=== PATIENT | female | born 1945 | race Caucasian/White ===

== ENCOUNTER 2017-07-02 09:39 | Emergency (ER) | payer OTHER, MEDICAID ==
[~2017-07-02] VITALS: Ht 157.5 cm; Wt 80.8 kg
[2017-07-02 09:40] VITALS: BP 131/82
[2017-07-02] MEDS ORDERED: POTA20TA89 PO (10:08)
[2017-07-02] MEDS ORDERED: SIMV80TA3 PO (10:10)
[2017-07-02] MEDS ORDERED: LISI-170 PO (10:10)
[2017-07-02] MEDS ORDERED: ASPI-496 PO (10:10)
[2017-07-02] MEDS ORDERED: FURO20TA3 PO (10:10)
[2017-07-02] MEDS ORDERED: RANI150T4 PO (10:10)
[2017-07-02] MEDS ORDERED: CARV12.52 PO (10:10)
[2017-07-02] MEDS ORDERED: HYDROcodone/APAP 5/325 TABLET ONE (10:19)
[2017-07-02] MEDS ORDERED: HYDROcodone/APAP 5/325 TABLET PO PRN (10:30)
== END 2017-07-02 12:08 | disposition home or self-care (01) ==
LOC: ED 10:40
DX: M51.36 Other intervertebral disc degeneration, lumbar region (principal); K45.8 Other specified abdominal hernia without obstruction or gangrene; J44.9 Chronic obstructive pulmonary disease, unspecified; I11.0 Hypertensive heart disease with heart failure; I50.9 Heart failure, unspecified
CPT/HCPCS: 72072; 72110; 99284

== ENCOUNTER → 2017-09-03 | Outpatient (CLI) | payer OTHER, MEDICAID ==
[~2017-09-03] MED LIST: ASPI-496 PO; CARV12.52 PO; FURO20TA3 PO; LISI-170 PO; POTA20TA89 PO; RANI150T4 PO; SIMV80TA3 PO
== END | disposition home or self-care (01) ==
LOC: CFH 09:19
PROVIDERS: ATTEND Family Medicine
DX: I08.3 Combined rheumatic disorders of mitral, aortic and tricuspid valves (principal); I11.0 Hypertensive heart disease with heart failure; I50.9 Heart failure, unspecified; E78.5 Hyperlipidemia, unspecified
CPT/HCPCS: 93306

== ENCOUNTER → 2017-12-09 | Outpatient (CLI) | payer OTHER, MEDICAID | END | disposition home or self-care (01) | LOC: CFH 12:12 | PROVIDERS: ATTEND Family Medicine | DX: I08.3 Combined rheumatic disorders of mitral, aortic and tricuspid valves (principal); I11.0 Hypertensive heart disease with heart failure; I50.9 Heart failure, unspecified; Z99.81 Dependence on supplemental oxygen | CPT/HCPCS: 93306 ==

== ENCOUNTER 2018-01-13 06:51 | Observation (INO) | payer OTHER, MEDICAID ==
[~2018-01-13] VITALS: Ht 157.5 cm; Wt 90.0 kg
[2018-01-13] MEDS: SODIUM CHLORIDE 0.9% 1,000 ML IV SCH ×2 (07:13→15:13)
[2018-01-13] MEDS ORDERED: CEFAZOLIN PMX 1GM/50ML 50 ML IVPB ONE (07:30)
[2018-01-13] MEDS ORDERED: ATOR40TA78 PO (07:31)
[2018-01-13] MEDS ORDERED: LISI5TAB7 PO (07:31)
[2018-01-13 07:52] VITALS: BP 142/89
[2018-01-13] MEDS ORDERED: MIDAZOLAM 1 MG/ML, 2ML ONE (08:04)
[2018-01-13] MEDS ORDERED: FENTANYL PF 250 MCG/5ML ONE (08:04)
[2018-01-13] MEDS ORDERED: ALBUTEROL SULFATE 200 PUFFS/8.5 GR INH ONE (08:16)
[2018-01-13] MEDS ORDERED: DEXAMETHASONE 4 MG/ML, 1ML ONE (08:16)
[2018-01-13] MEDS ORDERED: SUCCINYLCHOLINE 20 MG/ML, 10ML ONE (08:16)
[2018-01-13] MEDS ORDERED: EPHEDRINE 50 MG/ML, 1ML ONE (08:16)
[2018-01-13] MEDS ORDERED: PROPOFOL 10 MG/ML, 20ML ONE (08:16)
[2018-01-13] MEDS ORDERED: ONDANSETRON 2MG/ML, 2ML ONE (08:16)
[2018-01-13] MEDS ORDERED: BUPIVACAINE 0.25% ONE (08:28)
[2018-01-13] MEDS ORDERED: CEFAZOLIN 1,000 MG ONE (08:29)
[2018-01-13] MEDS ORDERED: HYDROcodone/APAP 5/325 TABLET PO PRN (09:30)
[2018-01-13] MEDS ORDERED: ZOLPIDEM 5MG TABLET PO PRN (09:30)
[2018-01-13] MEDS ORDERED: ALBUTEROL SULFATE 2.5 MG/3 ML NPPB PRN (10:00)
[2018-01-13] MEDS ORDERED: hydrALAzine 20 MG/ML, 1ML IV PRN (10:00)
[2018-01-13] MEDS ORDERED: morphine SULFATE 10 MG/ML, 1ML IV PRN (10:00)
[2018-01-13] MEDS ORDERED: MEPERIDINE/PF 25MG/0.5ML IVPush PRN (10:00)
[2018-01-13] MEDS ORDERED: MIDAZOLAM 1 MG/ML, 2ML IV PRN (10:00)
[2018-01-13] MEDS ORDERED: OXYcodone 5 MG/5 ML ORAL.SOL UDC PO PRN (10:00)
[2018-01-13] MEDS ORDERED: LABETALOL 5MG/ML, 20ML IV PRN (10:00)
[2018-01-13] MEDS ORDERED: ONDANSETRON 2MG/ML, 2ML IVPush PRN (10:00)
[2018-01-13] MEDS ORDERED: FENTANYL PF 100 MCG/2ML IV PRN (10:00)
[2018-01-13] MEDS ORDERED: PROMETHAZINE 12.5 MG SUPP PR PRN (10:00)
[2018-01-13] MEDS ORDERED: OXYcodone 5 MG/5 ML ORAL.SOL UDC ONE (10:02)
[2018-01-13 11:46] VITALS: BP 121/78
[2018-01-13 13:50] VITALS: BP 116/75
[2018-01-13] MEDS: CEFAZOLIN PMX 1GM/50ML 50 ML IVPB SCH (16:40)
[2018-01-13] MEDS ORDERED: ATORVASTATIN 40 MG TABLET PO SCH (21:00)
[2018-01-13 21:43] VITALS: BP_SYST 102; BP_SYST 99; BP_DIAS 58; BP_DIAS 66
[2018-01-13] MEDS: FAMOTIDINE 20 MG TABLET PO SCH (21:49)
[2018-01-13] MEDS: SODIUM CHLORIDE FLUSH 10ML SYR IVF SCH (21:49)
[2018-01-13] MEDS: CARVEDILOL 12.5 MG TABLET PO SCH (21:49)
[2018-01-14] MEDS: CEFAZOLIN PMX 1GM/50ML 50 ML IVPB SCH (01:03)
[2018-01-14 02:20] VITALS: BP 95/61
[2018-01-14 08:00] VITALS: BP 96/61
[2018-01-14] MEDS ORDERED: ASPIRIN 81 MG TABLET EC PO SCH (09:00)
[2018-01-14] MEDS ORDERED: FUROSEMIDE 20 MG TABLET PO SCH (09:00)
[2018-01-14] MEDS ORDERED: POTASSIUM CHLORIDE 10 MEQ TABLET.ER PO SCH (09:00)
[2018-01-14] MEDS ORDERED: LISINOPRIL 5 MG TABLET PO SCH (09:00)
[2018-01-14] MEDS: FAMOTIDINE 20 MG TABLET PO SCH (09:39)
[2018-01-14] MEDS: CARVEDILOL 12.5 MG TABLET PO SCH (09:40)
[2018-01-14 09:41] VITALS: BP 113/68
[2018-01-14] MEDS: SODIUM CHLORIDE FLUSH 10ML SYR IVF SCH (09:41)
== END 2018-01-14 12:28 | disposition home or self-care (01) ==
LOC: CACL 06:51 → ORIP 09:21 → 5SO 11:13 → DCLOUNGE 01-14 12:12
PROVIDERS: ADMIT Internal Medicine Cardiovascular Disease; ATTEND Internal Medicine Cardiovascular Disease
DX: I25.5 Ischemic cardiomyopathy (principal); I11.0 Hypertensive heart disease with heart failure; I50.1 Left ventricular failure, unspecified; R94.31 Abnormal electrocardiogram [ECG] [EKG]; E78.2 Mixed hyperlipidemia
CPT/HCPCS: 33249; 71045; 71046; 93005; 93641; 96365; 96366; C1721; C1779; C1892; C1895; G0378; J0330; J0690; J1100; J2250; J2405; J2704; J3010; J3490

== ENCOUNTER 2018-12-19 10:41 | Emergency (ER) | payer MEDICARE, MEDICAID ==
[~2018-12-19] VITALS: Ht 157.5 cm; Wt 90.5 kg
[~2018-12-19 10:41] MED LIST changes: +ATOR40TA78 PO; +LISI5TAB7 PO; +SIMV80TA18 PO; -SIMV80TA3 PO
--- NOTE | 2018-12-19 11:57 | NUR ---
PT TO ROOM 30 FROM [facility]. PT PRESENTS TO ED WITH C/O BILATERAL LEG SWELLING X 2 WEEKS, AND INCREASED SOB X 4 MONTHS. PT DENIES LEG/FOOT PAIN, DENIES CHEST PAIN/PRESSURE. PT A&O, RESPS EVEN AND UNLABORED. PT ABLE TO SPEAK IN FULL SENTENCES WITHOUT DIFFICULTY. EKG TAKEN IN TRIAGE. ALL MONITORS IN PLACE. ERP ARREDONDO AT BEDSIDE FOR INITIAL ASSESSMENT.
[2018-12-19] MEDS ORDERED: POTA10TA6 PO (12:08)
[2018-12-19] MEDS ORDERED: CARV25TA12 PO (12:08)
[2018-12-19] MEDS ORDERED: RANI150C PO (12:08)
[2018-12-19 12:24] LABS: BASOPHILS # (AUTO) 0.05 x10^3/uL (0-0.1); BASOPHILS % (AUTO) 1 % (0-1); EOSINOPHILS # (AUTO) 0.13 x10^3/uL (0-0.4); EOSINOPHILS % (AUTO) 2 % (1-7); LYMPHOCYTES # (AUTO) 1.88 x10^3/uL (1-3.4); LYMPHOCYTES % (AUTO) 30 % (22-44); MD NO; MEAN CORPUSCULAR HEMOGLOBIN 30.6 pg (27.0-34.8); MEAN CORPUSCULAR HGB CONC 33.1 g/dL (32.4-35.8); MEAN CORPUSCULAR VOLUME 92.4 fL (80-100); MEAN PLATELET VOLUME 10.1 fL (7.4-10.4); MONOCYTES # (AUTO) 0.44 x10^3/uL (0.2-0.8); MONOCYTES % (AUTO) 7 % (2-9); NEUTROPHILS # (AUTO) 3.86 x10^3/uL (1.8-6.8); NEUTROPHILS % (AUTO) 61 % (42-75); PLATELET COUNT 196 x10^3/uL (130-400); RED BLOOD COUNT 4.37 x10^6/uL (3.82-5.3); RED CELL DISTRIBUTION WIDTH 14.3 % (9.6-15.2)
[2018-12-19 12:35] LABS: ALANINE AMINOTRANSFERASE 30 U/L (12-78); ALBUMIN 3.6 g/dL (3.4-5.0); ANION GAP 2 mmol/L (5-15); CALCIUM 8.4 mg/dL (8.5-10.1); CHLORIDE 112 mmol/L (98-107)
[2018-12-19 12:40] LABS: ALKALINE PHOSPHATASE 89 U/L (45-117); BILIRUBIN,TOTAL 1.9 mg/dL (0.2-1.0); CREATININE 1.25 mg/dL (0.55-1.02); TOTAL PROTEIN 6.7 g/dL (6.4-8.2)
[2018-12-19 13:10] LABS: TROPONIN I < 0.015 ng/mL (0.000-0.045)
--- NOTE | 2018-12-19 13:19 | NUR ---
REPORT GIVEN TO JAMES MARINELLI AT BEDSIDE, US IN PROGRESS. PT A&O, RESPS EVEN AND UNLABORED, NO COMPLAINT AT THIS TIME.
[2018-12-19 13:25] VITALS: BP 113/89
[2018-12-19] MEDS ORDERED: FUROSEMIDE 20 MG TABLET ONE (13:58)
[2018-12-19] MEDS ORDERED: FUROSEMIDE 40 MG TABLET PO ONE (14:00)
== END 2018-12-19 14:58 | disposition home or self-care (01) ==
LOC: ED 12:38
DX: R60.0 Localized edema (principal); I11.0 Hypertensive heart disease with heart failure; I50.9 Heart failure, unspecified; J44.9 Chronic obstructive pulmonary disease, unspecified; Z95.0 Presence of cardiac pacemaker
CPT/HCPCS: 36415; 71046; 80053; 83880; 84484; 85025; 93005; 93970; 99284

== ENCOUNTER 2019-03-09 15:51 | Inpatient (IN) | payer MEDICARE, MEDICAID ==
[~2019-03-09] VITALS: Ht 157.5 cm; Wt 90.4 kg
[~2019-03-09 15:51] MED LIST changes: +CARV25TA12 PO; +POTA10TA6 PO; +RANI150C PO
[2019-03-09 16:54] LABS: BASOPHILS # (AUTO) 0.07 x10^3/uL (0-0.1); BASOPHILS % (AUTO) 1 % (0-1); EOSINOPHILS # (AUTO) 0.03 x10^3/uL (0-0.4); EOSINOPHILS % (AUTO) 0 % (1-7); LYMPHOCYTES # (AUTO) 1.46 x10^3/uL (1-3.4); LYMPHOCYTES % (AUTO) 14 % (22-44); MD NO; MEAN CORPUSCULAR HEMOGLOBIN 30.6 pg (27.0-34.8); MEAN CORPUSCULAR VOLUME 92.7 fL (80-100); MEAN PLATELET VOLUME 10.1 fL (7.4-10.4); MONOCYTES # (AUTO) 0.89 x10^3/uL (0.2-0.8); MONOCYTES % (AUTO) 9 % (2-9); NEUTROPHILS # (AUTO) 7.79 x10^3/uL (1.8-6.8); NEUTROPHILS % (AUTO) 76 % (42-75); PLATELET COUNT 144 x10^3/uL (130-400); RED BLOOD COUNT 4.15 x10^6/uL (3.82-5.3); RED CELL DISTRIBUTION WIDTH 13.9 % (9.6-15.2)
[2019-03-09 17:08] LABS: ALBUMIN 3.5 g/dL (3.4-5.0); ANION GAP 7 mmol/L (5-15); CALCIUM 8.4 mg/dL (8.5-10.1); CHLORIDE 106 mmol/L (98-107)
[2019-03-09 17:14] LABS: ALANINE AMINOTRANSFERASE 17 U/L (12-78); ALKALINE PHOSPHATASE 85 U/L (45-117); BILIRUBIN,TOTAL 3.4 mg/dL (0.2-1.0); TOTAL PROTEIN 6.9 g/dL (6.4-8.2); TROPONIN I 0.025 ng/mL (0.000-0.045)
[2019-03-09] MEDS ORDERED: OMNIPAQUE 350 MG/ML, 100ML BOTTLE ONE (18:57)
--- NOTE | 2019-03-09 19:10 | NUR ---
PT RESTING ON GURNEY, DENIES NEEDS, MONITORS IN PLACE, SIDERAISL UP X2, CALL LIGHT WITHIN REACH. AWAITING CT RESULT
[2019-03-09] MEDS ORDERED: ASPI-496 PO (19:12)
[2019-03-09] MEDS ORDERED: RANI150C PO (19:12)
[2019-03-09] MEDS ORDERED: FURO-93 PO (19:12)
[2019-03-09] MEDS ORDERED: CARV6.2512 PO (19:12)
[2019-03-09] MEDS ORDERED: LISI-170 PO (19:12)
[2019-03-09] MEDS ORDERED: ATOR10TA9 PO (19:12)
[2019-03-09] MEDS ORDERED: HEPARIN 5,000 UNITS/ML, 1ML ONE (19:44)
[2019-03-09] MEDS ORDERED: HEPARIN 25,000 UNITS/500ML PMX 500 ML ONE (19:45)
[2019-03-09] MEDS ORDERED: HEPARIN 5,000 UNITS/ML, 1ML IV ONE ×2 (20:00)
[2019-03-09] MEDS ORDERED: HEPARIN 25,000 UNITS/500ML PMX 500 ML IV PRN (20:00)
[2019-03-09] MEDS ORDERED: HEPARIN 5,000 UNITS/ML, 1ML IV PRN (20:00)
[2019-03-09] MEDS: HEPARIN 25,000 UNITS/500ML PMX 500 ML IV PRN (20:02)
--- NOTE | 2019-03-09 20:07 | NUR ---
PT RESTING CALMLY, HEPARIN BOLUS GIVEN AND GTT STARTED, CHECKED BY 2 RN;S, MONITORS IN PLACE, CALL LIGHT WITHIN REACH. AWAITING ROOM FOR ADMIT
[2019-03-09] MEDS ORDERED: POLYETHYLENE GLYCOL 17 GM PACKET PO PRN (21:30)
[2019-03-09] MEDS ORDERED: ONDANSETRON 2MG/ML, 2ML IVPush PRN (21:30)
[2019-03-09] MEDS ORDERED: morphine SULFATE 10 MG/ML, 1ML IVPush PRN (21:30)
[2019-03-09 22:14] LABS: INTERNATIONAL NORMALIZED RATIO 1.13 (0.93-1.1); PROTHROMBIN TIME 11.8 Seconds (9.6-11.5)
[2019-03-09 22:22] LABS: TROPONIN I 0.031 ng/mL (0.000-0.045)
[2019-03-10 01:07] VITALS: BP 99/64
[2019-03-10 03:02] LABS: ALBUMIN 3.1 g/dL (3.4-5.0); ANION GAP 6 mmol/L (5-15); CALCIUM 8.2 mg/dL (8.5-10.1); CHLORIDE 104 mmol/L (98-107)
[2019-03-10 03:10] LABS: ALANINE AMINOTRANSFERASE 15 U/L (12-78); ALKALINE PHOSPHATASE 81 U/L (45-117); BILIRUBIN,TOTAL 3.3 mg/dL (0.2-1.0); CHOL/HDL RATIO 3.3; CHOLESTEROL, TOTAL 112 mg/dL (140-239); CREATININE 1.02 mg/dL (0.55-1.02); HDL CHOL % 30 % (28-40); HDL CHOLESTEROL (DIRECT) 34 mg/dL (40-60); LDL CHOLESTEROL,CALCULATED 61 mg/dL (54-169); LDL/HDL RATIO 1.8 (0.5-3.0); TOTAL PROTEIN 6.2 g/dL (6.4-8.2); TRIGLYCERIDES 84 mg/dL (50-200); TROPONIN I 0.036 ng/mL (0.000-0.045); VLDL CHOLESTEROL 17 mg/dL (0-25)
[2019-03-10] MEDS: HEPARIN 5,000 UNITS/ML, 1ML IV PRN (03:26)
[2019-03-10] MEDS: SENNA/DOCUSATE TABLET PO SCH (08:18)
[2019-03-10 09:50] VITALS: BP 101/62
[2019-03-10 13:25] VITALS: BP 103/67
[2019-03-10] MEDS: CARVEDILOL 3.125 MG TABLET PO SCH (18:16)
[2019-03-10] MEDS: HEPARIN 25,000 UNITS/500ML PMX 500 ML IV PRN (19:32)
[2019-03-10 20:05] VITALS: BP 98/67
[2019-03-11 01:20] VITALS: BP 105/61
[2019-03-11 05:13] VITALS: BP 101/67
[2019-03-11] MEDS: CARVEDILOL 3.125 MG TABLET PO SCH ×2 (05:14→17:45)
[2019-03-11 05:27] LABS: BASOPHILS # (AUTO) 0.13 x10^3/uL (0-0.1); BASOPHILS % (AUTO) 2 % (0-1); EOSINOPHILS # (AUTO) 0.12 x10^3/uL (0-0.4); EOSINOPHILS % (AUTO) 2 % (1-7); LYMPHOCYTES # (AUTO) 1.57 x10^3/uL (1-3.4); LYMPHOCYTES % (AUTO) 19 % (22-44); MD NO; MEAN CORPUSCULAR HEMOGLOBIN 30.5 pg (27.0-34.8); MEAN CORPUSCULAR HGB CONC 32.8 g/dL (32.4-35.8); MEAN CORPUSCULAR VOLUME 93.1 fL (80-100); MEAN PLATELET VOLUME 11.2 fL (7.4-10.4); MONOCYTES # (AUTO) 0.71 x10^3/uL (0.2-0.8); MONOCYTES % (AUTO) 8 % (2-9); NEUTROPHILS # (AUTO) 5.97 x10^3/uL (1.8-6.8); NEUTROPHILS % (AUTO) 70 % (42-75); PLATELET COUNT 134 x10^3/uL (130-400); RED CELL DISTRIBUTION WIDTH 13.9 % (9.6-15.2)
[2019-03-11 05:49] LABS: ALANINE AMINOTRANSFERASE 17 U/L (12-78); ALBUMIN 2.7 g/dL (3.4-5.0); ALKALINE PHOSPHATASE 84 U/L (45-117); CALCIUM 8.1 mg/dL (8.5-10.1); CREATININE 0.99 mg/dL (0.55-1.02); TOTAL PROTEIN 5.9 g/dL (6.4-8.2)
[2019-03-11 05:56] LABS: ANION GAP 7 mmol/L (5-15); CHLORIDE 103 mmol/L (98-107)
[2019-03-11] MEDS: HEPARIN 5,000 UNITS/ML, 1ML IV PRN (05:58)
[2019-03-11 07:05] VITALS: BP 102/68
[2019-03-11] MEDS: SENNA/DOCUSATE TABLET PO SCH (08:13)
[2019-03-11 13:20] VITALS: BP 102/67
[2019-03-11] MEDS: RIVAROXABAN 15 MG TABLET PO SCH (17:45)
[2019-03-11 21:28] VITALS: BP 103/69
[2019-03-12 02:16] VITALS: BP 96/63
[2019-03-12 05:45] LABS: BASOPHILS # (AUTO) 0.03 x10^3/uL (0-0.1); BASOPHILS % (AUTO) 1 % (0-1); EOSINOPHILS # (AUTO) 0.23 x10^3/uL (0-0.4); EOSINOPHILS % (AUTO) 3 % (1-7); LYMPHOCYTES # (AUTO) 1.47 x10^3/uL (1-3.4); LYMPHOCYTES % (AUTO) 21 % (22-44); MD NO; MEAN CORPUSCULAR HEMOGLOBIN 29.8 pg (27.0-34.8); MEAN CORPUSCULAR HGB CONC 31.8 g/dL (32.4-35.8); MEAN CORPUSCULAR VOLUME 93.6 fL (80-100); MEAN PLATELET VOLUME 9.8 fL (7.4-10.4); MONOCYTES # (AUTO) 0.58 x10^3/uL (0.2-0.8); MONOCYTES % (AUTO) 8 % (2-9); NEUTROPHILS # (AUTO) 4.64 x10^3/uL (1.8-6.8); NEUTROPHILS % (AUTO) 67 % (42-75); PLATELET COUNT 148 x10^3/uL (130-400); RED BLOOD COUNT 4.21 x10^6/uL (3.82-5.3); RED CELL DISTRIBUTION WIDTH 13.9 % (9.6-15.2)
[2019-03-12 05:58] LABS: CALCIUM 8.7 mg/dL (8.5-10.1); CHLORIDE 105 mmol/L (98-107)
[2019-03-12 06:04] LABS: ALANINE AMINOTRANSFERASE 16 U/L (12-78); ALBUMIN 2.9 g/dL (3.4-5.0); ALKALINE PHOSPHATASE 95 U/L (45-117); ANION GAP 5 mmol/L (5-15); BILIRUBIN,TOTAL 1.5 mg/dL (0.2-1.0); CREATININE 0.98 mg/dL (0.55-1.02); TOTAL PROTEIN 6.5 g/dL (6.4-8.2)
[2019-03-12] MEDS: CARVEDILOL 3.125 MG TABLET PO SCH (06:13)
[2019-03-12 07:11] VITALS: BP 103/68
[2019-03-12] MEDS ORDERED: RIVA15TA PO (08:36)
[2019-03-12] MEDS ORDERED: CARV3.1212 PO (08:36)
[2019-03-12] MEDS: RIVAROXABAN 15 MG TABLET PO SCH (08:44)
[2019-03-12] MEDS: SENNA/DOCUSATE TABLET PO SCH (08:44)
== END 2019-03-12 09:58 | disposition home or self-care (01) | DRG 175 ==
LOC: ED 20:14 → EDIP 20:17 → MERGE 20:17 → 5SO 22:22 → DCLOUNGE 03-12 09:37
PROVIDERS: ADMIT Family Medicine; ATTEND Family Medicine
DX: I26.99 Other pulmonary embolism without acute cor pulmonale (principal); J96.21 Acute and chronic respiratory failure with hypoxia; I82.812 Embolism and thrombosis of superficial veins of left lower extremity; J98.11 Atelectasis; I11.0 Hypertensive heart disease with heart failure; I50.9 Heart failure, unspecified; J44.9 Chronic obstructive pulmonary disease, unspecified; K21.9 Gastro-esophageal reflux disease without esophagitis; K80.20 Calculus of gallbladder without cholecystitis without obstruction; Z79.01 Long term (current) use of anticoagulants; Z79.899 Other long term (current) drug therapy; Z80.41 Family history of malignant neoplasm of ovary; Z90.710 Acquired absence of both cervix and uterus; Z90.721 Acquired absence of ovaries, unilateral; Z95.0 Presence of cardiac pacemaker
CPT/HCPCS: 36415; 71045; 71275; 76700; 80053; 80061; 83605; 83880; 84443; 84484; 85025; 85520; 85610; 87040; 93005; 93970; 94640; 96374; G0378; J1644; Q9967

== ENCOUNTER 2019-04-25 10:02 | Outpatient (CLI) | payer MEDICARE, MEDICAID | END 2019-04-25 23:59 | disposition home or self-care (01) | LOC: CVU 10:02 | PROVIDERS: ATTEND Registered Nurse | DX: I08.3 Combined rheumatic disorders of mitral, aortic and tricuspid valves (principal); I50.1 Left ventricular failure, unspecified; E78.5 Hyperlipidemia, unspecified | CPT/HCPCS: 93306 ==

== ENCOUNTER 2019-09-02 10:02 | Emergency (ER) | payer MEDICAID, MEDICARE ==
[~2019-09-02] VITALS: Ht 162.6 cm; Wt 83.2 kg
[~2019-09-02 10:02] MED LIST changes: +ATOR10TA9 PO; +CARV3.1212 PO; +CARV6.2512 PO; +FURO-93 PO; +RIVA15TA PO
[2019-09-02 10:12] VITALS: BP 130/90
--- NOTE | 2019-09-02 11:10 | NUR ---
REPORT FROM LUCY, ASSUME CARE OF PT AT THIS TIME. AWAITING CT RESULT
[2019-09-02 11:12] LABS: BASOPHILS # (AUTO) 0.03 x10^3/uL (0-0.1); BASOPHILS % (AUTO) 0 % (0-1); EOSINOPHILS # (AUTO) 0.15 x10^3/uL (0-0.4); EOSINOPHILS % (AUTO) 2 % (1-7); LYMPHOCYTES # (AUTO) 2.11 x10^3/uL (1-3.4); LYMPHOCYTES % (AUTO) 32 % (22-44); MD NO; MEAN CORPUSCULAR HEMOGLOBIN 31.5 pg (27.0-34.8); MEAN CORPUSCULAR HGB CONC 32.8 g/dL (32.4-35.8); MONOCYTES # (AUTO) 0.42 x10^3/uL (0.2-0.8); MONOCYTES % (AUTO) 7 % (2-9); NEUTROPHILS # (AUTO) 3.82 x10^3/uL (1.8-6.8); NEUTROPHILS % (AUTO) 59 % (42-75); PLATELET COUNT 179 x10^3/uL (130-400); RED BLOOD COUNT 4.45 x10^6/uL (3.82-5.3); RED CELL DISTRIBUTION WIDTH 14.4 % (9.6-15.2)
[2019-09-02 11:29] LABS: ALANINE AMINOTRANSFERASE 34 U/L (12-78); ALBUMIN 3.6 g/dL (3.4-5.0); ANION GAP 6 mmol/L (5-15); CALCIUM 8.6 mg/dL (8.5-10.1); CHLORIDE 112 mmol/L (98-107)
[2019-09-02 11:34] LABS: ALKALINE PHOSPHATASE 88 U/L (45-117); BILIRUBIN,TOTAL 1.8 mg/dL (0.2-1.0); CREATININE 1.14 mg/dL (0.55-1.02); TROPONIN I < 0.015 ng/mL (0.000-0.045)
== END 2019-09-02 12:53 | disposition home or self-care (01) ==
LOC: ED 12:50
DX: R53.1 Weakness (principal); R11.0 Nausea; R06.02 Shortness of breath; H93.8X9 Other specified disorders of ear, unspecified ear; J44.9 Chronic obstructive pulmonary disease, unspecified; I11.0 Hypertensive heart disease with heart failure; I50.9 Heart failure, unspecified; Z95.0 Presence of cardiac pacemaker
CPT/HCPCS: 36415; 70450; 71045; 80053; 84484; 85025; 93005; 99284

== ENCOUNTER → 2019-10-17 | Outpatient (CLI) | payer MEDICARE, MEDICAID | END | disposition home or self-care (01) | LOC: CFH 10:00 | PROVIDERS: ATTEND Internal Medicine Cardiovascular Disease | DX: I08.8 Other rheumatic multiple valve diseases (principal) | CPT/HCPCS: 93306 ==

== ENCOUNTER 2020-07-14 13:10 | Emergency (ER) | payer OTHER, MEDICAID ==
[~2020-07-14] VITALS: Ht 157.5 cm; Wt 90.0 kg
--- NOTE | 2020-07-14 13:50 | NUR ---
TASK RN: THIS IS A 75 YO F W/ C/O LWR LT BACK PAIN 100/10 THAT RADIATES UP INTO HER NECK SINCE OCTOBER. PT REPORTS PAIN PRECEEDED BY "OUT OF BODY EXPERIENCE". PT DENIES INJURY. PT ALSO C/O PRODUCTIVE COUGH X6 WEEKS. PT RESTING COMFORTABLY ON [employer]D W/ CALL LIGHT IN REACH, SIDE RAILS UPX2. RESP EVEN AND UNLABORED, NADN. VIKTOR BATRES AT BEDSIDE.
--- NOTE | 2020-07-14 14:18 | NUR ---
[facility] TO [facility] [employer] AT [facility].
[2020-07-14 15:12] LABS: BASOPHILS % (AUTO) 1 % (0-1); EOSINOPHILS % (AUTO) 2 % (1-7); LYMPHOCYTES % (AUTO) 24 % (22-44); MEAN CORPUSCULAR HGB CONC 32.8 g/dL (32.4-35.8); MEAN PLATELET VOLUME 9.6 fL (7.4-10.4); MONOCYTES % (AUTO) 7 % (2-9); NEUTROPHILS % (AUTO) 67 % (42-75); PLATELET COUNT 176 x10^3/uL (130-400); RED CELL DISTRIBUTION WIDTH 13.6 % (9.6-15.2)
[2020-07-14 15:15] LABS: MD NO
--- NOTE | 2020-07-14 15:16 | NUR ---
PT AMBULATES TO RESTROOM WITH STEADY GAIT TO PROVIDE UA.
[2020-07-14 15:17] VITALS: BP 127/70
[2020-07-14 15:22] LABS: ALBUMIN 3.6 g/dL (3.4-5.0); ANION GAP 5 mmol/L (5-15); CALCIUM 8.8 mg/dL (8.5-10.1); CHLORIDE 107 mmol/L (98-107)
[2020-07-14 15:27] LABS: CREATININE 1.22 mg/dL (0.55-1.02)
[2020-07-14 16:11] LABS: MICROSCOPIC INDICATED
== END 2020-07-14 16:51 | disposition home or self-care (01) ==
LOC: ED 15:02
DX: S39.012A Strain of muscle, fascia and tendon of lower back, initial encounter (principal); M51.36 Other intervertebral disc degeneration, lumbar region; I11.0 Hypertensive heart disease with heart failure; I50.21 Acute systolic (congestive) heart failure; J44.9 Chronic obstructive pulmonary disease, unspecified; Z95.0 Presence of cardiac pacemaker; X58.XXXA Exposure to other specified factors, initial encounter; Y93.89 Activity, other specified; Y92.89 Other specified places as the place of occurrence of the external cause; Y99.8 Other external cause status
CPT/HCPCS: 36415; 71045; 72110; 80048; 81001; 82040; 83880; 85025; 99283